=== PATIENT | female | born 1995 | race Caucasian/White ===

== ENCOUNTER 2022-06-21 13:00 | Emergency (ER) | payer OTHER ==
[2022-06-21 14:44] LABS: BASOPHIL 0.9 % (0-2); EOSINOPHIL 1.3 % (0-5); HCT 44.6 % (37.0-47.0); HGB 14.3 g/dl (12.5-16.0); MCH 27.6 pg (25.0-31.0); MCHC 32.1 g/dL (32.0-36.0); MCV 85.9 fL (78.0-100.0); MONOCYTE 4.8 % (0-12); MPV 10.7 fL (6.0-9.5); NEUTROPHIL 70.5 % (41-80); NRBC 0; PLT 280 K/uL (150-400); RBC 5.19 M/uL (4.20-5.40); RDW 13.5 % (11.5-14.0); WBC 10.8 K/uL (4.0-10.5)
[2022-06-21 15:11] LABS: BUN 7 mg/dL (7-18); BUN/CREAT RATIO (CALC) 12.1 RATIO; CHLORIDE 104 mmol/L (98-107); CO2 (BICARBONATE) 23 mmol/L (21-32); CREATININE 0.58 mg/dL (0.51-0.95); GLUCOSE 146 mg/dL (74-106); POTASSIUM 4.4 mmol/L (3.5-5.1)
[2022-06-21 15:26] LABS: CORONAVIRUS 2019 SARS-COV-2 NEGATIVE (NEGATIVE); INFLUENZA A NAA NEGATIVE (NEGATIVE)
[2022-06-21] MEDS ORDERED: MEDROL 4MG DOSEP4 MG PO (15:49)
== END 2022-06-21 16:04 | disposition home or self-care (01) ==
LOC: FER 13:00
PROVIDERS: Nurse Practitioner Family
DX: J45.901 Unspecified asthma with (acute) exacerbation (principal); E11.9 Type 2 diabetes mellitus without complications; Z20.822 Contact with and (suspected) exposure to COVID-19; Z79.84 Long term (current) use of oral hypoglycemic drugs; Z88.0 Allergy status to penicillin; Z88.1 Allergy status to other antibiotic agents; Z28.310 Unvaccinated for COVID-19
CPT/HCPCS: 36415; 71045; 80048; 84484; 85025; 93005; 94640; 94664; J2930; U0002